=== PATIENT | female | born 1970 | race Asian ===

== ENCOUNTER 2018-06-01 14:12 | Emergency (ER) | payer SELFPAY ==
--- NOTE | 2018-06-01 15:27 | XRay Report ---
FINAL REPORT EXAM: XR CHEST ROUTINE 2V HISTORY: PERSISTANT COUGH WITH FEVER TECHNIQUE: Chest, two views PRIORS: None. FINDINGS: The heart size is normal. Mediastinal contours are normal. Pulmonary vasculature is not congested. There is a moderate left pleural effusion. There is airspace disease in the left lower lobe. The right lung is clear. There is no evidence of pneumothorax. IMPRESSION: Moderate left pleural effusion and left lower lobe airspace disease which could be pneumonia.
[2018-06-01 16:23] LABS: Bacteria,Urine 1+ /HPF (Negative); Bilirubin,Urine NEG (Negative); Blood,Urine SM (Negative); Color,Urine Yellow (Yellow); Protein,Urine <15 mg/dL mg/dL (Negative); Urobilinogen,Urine < 2.0 mg/dL (<2.0)
[2018-06-01] MEDS ORDERED: TYLENOL PO ONE (17:08)
--- NOTE | 2018-06-01 17:08 | Emergency Department Report ---
Minor Respiratory - HPI Chief Complaint: Upper Respiratory Infection Stated Complaint: FEVER/BACK/CHEST PAIN Duration: 5 Days Pain Location: Chest Severity: moderate Minor Respiratory: Yes Able to Tolerate Fluids, Yes Cough, Yes Chest Pain (left sided), Yes Shortness of Breath, Yes Fever, No Rhinorrhea, No Sore Throat, No Ear Pain, No Sick Contacts, No Hemoptysis Other History: This is a 48-year-old -[place] female who presents with fever, chills, left lower back pain radiating to his left side of chest for 5 days. Patient states she was seen by primary care Dr. Kohler on Saturday and didn' t get a definite diagnosis. Reports pain increased since leaving an office. She is unable to control temperature with her. Patient refuses a antipyretics. She reports appetite is decreased but she continues to drink water. She admits to urinary frequency and urgency with nausea. Patient denies dysuria, sore throat, vomiting, congestion, dyspnea, and rhinorrhea. ED Review of Systems ROS: Stated complaint: FEVER/BACK/CHEST PAIN Other details as noted in HPI Constitutional: denies: chills, fever ENT: congestion. denies: ear pain, throat pain Respiratory: cough Cardiovascular: chest pain. denies: palpitations Gastrointestinal: denies: abdominal pain, nausea, diarrhea Musculoskeletal: back pain (left flank). denies: joint swelling, arthralgia Skin: denies: rash, lesions Neurological: denies: headache, weakness, paresthesias Psychiatric: denies: anxiety, depression ED Past Medical Hx - Past Medical History Hx Hypertension: Yes - Surgical History Past Surgical History?: No - Social History Smoking Status: Never Smoker Substance Use Type: None - Medications Home Medications: Home Medications Medication Instructions Recorded Confirmed Last Taken Type Azithromycin [Zithromax Z-KIMBERLY] 250 mg PO DAILY #6 tablet 06/01/18 Unknown Rx Fluconazole [Diflucan] 150 mg PO DAILY #1 tablet 06/01/18 Unknown Rx Minor Respiratory Exam - Exam General: Vital signs noted. No distress. Alert and acting appropriately. HEENT: Yes Moist Mucous Membranes, Yes Rhinorrhea (turbinate is mildly congested with clear discharge), No Pharyngeal Erythema, No Pharyngeal Exudates , No Conjuctival Injection, No Frontal Tenderness, No Maxillary Tenderness Ear: Neither TM Bulge, Neither TM Erythema, Neither EAC Pain, Neither EAC Discharge Neck: Yes Supple, No Adenopathy Lungs: Yes Other Abnormal Lung Sounds (decrease in lower lobes bilaterally), No Good Air Exchange, No Wheezes, No Ronchi, No Stridor, No Cough, No Labored Respirations, No Retractions, No Use of Accessory Muscles Heart: Yes Regular, No Murmur Abdomen: Yes Normal Bowel Sounds, No Tenderness, No Peritoneal Signs Skin: No Rash, No Edema Neurologic: Alert and oriented, no deficits. Musculoskeletal: Unremarkable. ED Course Vital Signs 06/01/18 14:27 Temperature 101.2 F H Pulse Rate 113 H Respiratory 16 Rate Blood Pressure 141/79 O2 Sat by Pulse 98 Oximetry Vital Signs 06/01/18 06/01/18 14:27 18:42 Temperature 101.2 F H 99.4 F Pulse Rate 113 H 97 H Respiratory 16 16 Rate Blood Pressure 141/79 Blood Pressure 119/68 [Right] O2 Sat by Pulse 98 97 Oximetry ED Medical Decision Making - Lab Data Lab Results 06/01/18 Range/Units 15:45 Urine Color Yellow (Yellow) Urine Turbidity Clear (Clear) Urine pH 7.0 (5.0-7.0) Ur Specific [place] 1.005 (1.003-1.030) Urine Protein <15 mg/dl (Negative) mg/dL Urine Glucose (UA) Neg (Negative) mg/dL Urine Ketones Neg (Negative) mg/dL Urine Blood Sm (Negative) Urine Nitrite Neg (Negative) Urine Bilirubin Neg (Negative) Urine Urobilinogen < 2.0 (<2.0) mg/dL Ur Leukocyte Esterase Neg (Negative) Urine WBC (Auto) 1.0 (0.0-6.0) /HPF Urine RBC (Auto) 5.0 (0.0-6.0) /HPF U Epithel Cells (Auto) 2.0 (0-13.0) /HPF Urine Bacteria (Auto) 1+ (Negative) /HPF - Radiology Data Radiology results: report reviewed Chest x-ray impression: Moderate left pleural effusion and left lower lobe airspace disease which could be pneumonia. - Medical Decision Making Patient is stable and was examined by me. No acute signs of distress noted. Patient does not seem toxic or ill in appearance. Chest xray has been obtained and dictated by radiologist. Moderate left pleural effusion and left lower lobe airspace disease which could be pneumonia. Temperature elevated on arrival. Given Tylenol 650 mg by mouth once in ER. Temperature trended down on reevaluation. Patient agrees to the ED plan of care to treat outpatient. No further questions noted. Discharged home with azithromycin. Follow up with primary care provider Dr. Kohler in 24-48 hours. Critical care attestation.: If time is entered above; I have spent that time in minutes in the direct care of this critically ill patient, excluding procedure time. ED Disposition Clinical Impression: Antibiotic-induced yeast infection Pneumonia Qualifiers: Pneumonia type: due to unspecified organism Laterality: left Lung location: lower lobe of lung Qualified Code(s): J18.1 - Lobar pneumonia, unspecified organism Disposition: TO HOME OR SELFCARE Is pt being admited?: No Does the pt Need Aspirin: No Condition: Stable Instructions: Bacterial Pneumonia (ED) Additional Instructions: Complete full course of medication as prescribed. Follow up with Dr. Kohler in 48-72 hours for reevaluation. Increase fluids to prevent dehydration. Avoid smoking and rest. Prescriptions: Azithromycin [Zithromax Z-KIMBERLY] 250 mg PO DAILY #6 tablet Fluconazole [Diflucan] 150 mg PO DAILY #1 tablet Referrals: EMMETT KOHLER MD [Staff Physician] - 3-5 Days [facility] [Provider Group] - 3-5 Days [facility] [Provider Group] - 3-5 Days Time of Disposition: 17:39
[2018-06-01 18:43] VITALS: BP 119/68
[2018-06-01] MEDS ORDERED: ZITHROMAX PO ONE (18:47)
== END 2018-06-01 19:01 | disposition home or self-care (01) ==
LOC: ED 14:12
DX: J18.1 Lobar pneumonia, unspecified organism (principal); B37.89 Other sites of candidiasis; I10 Essential (primary) hypertension
CPT/HCPCS: 71046; 81001

== ENCOUNTER 2018-06-10 15:09 | Outpatient (CLI) | payer OTHER ==
--- NOTE | 2018-06-10 16:17 | XRay Report ---
FINAL REPORT EXAM: XR CHEST ROUTINE 2V HISTORY: PNEUMONIA TECHNIQUE: Frontal and lateral chest x-ray. PRIORS: 01 June 2018. FINDINGS: Cardiac and mediastinal silhouette within normal limits. Lungs again show moderate left pleural effusion and opacification of lower 3rd of left hemithorax partially obscuring left cardiac margin, increased from comparison. Right lung grossly clear. No apparent pneumothorax. Bony thorax grossly unremarkable. IMPRESSION: 1. Left lower lung atelectasis versus consolidation and moderate left pleural effusion, increased in the interval. Clinical correlation and followup to resolution advised.
== END 2018-06-10 15:10 | disposition home or self-care (01) ==
LOC: XRAY 15:09
DX: J18.1 Lobar pneumonia, unspecified organism (principal); I10 Essential (primary) hypertension
CPT/HCPCS: 71046